=== PATIENT | male | born 1980 | race Caucasian/White ===

== ENCOUNTER 2016-09-08 03:20 | Emergency (ER) | payer BC ==
[2016-09-08] MEDS ORDERED: Ondansetron 4 MG/2 ML SDV IVPUSH ONE (03:29)
[2016-09-08] MEDS ORDERED: Sodium Chloride 0.9% 1,000 ML IV ONE (03:29)
--- NOTE | 2016-09-08 03:42 | EDM.PDOC ---
ED HPI GENERAL MEDICAL PROBLEM - General Chief Complaint: Gastrointestinal Problem Stated Complaint: nausea Time Seen by Provider: 09/08/16 03:27 Source of Information: Reports: Patient, EMS, EMS Notes Reviewed History Limitations: Reports: Other (anxious) - History of Present Illness INITIAL COMMENTS - FREE TEXT/NARRATIVE: 36 years old w m came to the ed by ems due to sudden onset of N/V, worst headache, bilat arm tingling and SOB. Pt stated he was in the past diagnosed with TIA. He is under a lot of stress at work. As the patient arrived here, he was pale but improved as the HPI was taken. No stroke symptoms. Pt was holding his arms up for 5 sec. tongue was midline EOMI. Pt stated he felt nauseated, his sob and arm tingling are subsiding. Onset: Today, Sudden Onset Date: 09/08/16 Onset Time: 03:00 Duration: Minutes: Location: Reports: Head, Upper Extremity, Left, Upper Extremity, Right Quality: Reports: Same as Previous Episode Severity: Moderate Improves with: Reports: None Worsens with: Reports: None - Related Data Allergies Allergy/AdvReac Type Severity Reaction Status Date / Time No Known Allergies Allergy Verified 09/08/16 03:25 Home Meds: Home Meds Ondansetron [Zofran ODT] 8 mg PO Q8HR PRN #16 tab.dis 09/08/16 [Rx] Polyvinyl Alcohol/Povidone/Pf [Refresh Classic Eye Drops] 2 drop EYEBOTH QID [History] ED ROS GENERAL - Review of Systems Review Of Systems: See Below Constitutional: Reports: No Symptoms, Fatigue, Night Sweats HEENT: Reports: No Symptoms Respiratory: Reports: Shortness of Breath Cardiovascular: Reports: No Symptoms Endocrine: Reports: No Symptoms GI/Abdominal: Reports: Nausea : Reports: No Symptoms Musculoskeletal: Reports: Muscle Pain Skin: Reports: No Symptoms Neurological: Reports: Weakness Psychiatric: Reports: Agitation, Anxiety Hematologic/Lymphatic: Reports: No Symptoms Immunologic: Reports: No Symptoms ED EXAM, GI/ABD - Physical Exam Exam: See Below Exam Limited By: Other (anxious) General Appearance: Alert, WD/WN, Anxious, Mild Distress Eyes: Bilateral: Normal Appearance Ears: Normal External Exam Nose: Normal Inspection, Normal Mucosa, No Blood Throat/Mouth: Normal Inspection, Normal Lips Head: Atraumatic, Normocephalic Neck: Normal Inspection, Supple, Non-Tender Respiratory/Chest: Respiratory Distress (by hyperventilating) Cardiovascular: Normal Peripheral Pulses, Regular Rate, Rhythm, No Edema GI/Abdominal: Normal Bowel Sounds, Soft, Non-Tender, No Organomegaly (Male) Exam: Deferred Rectal (Males) Exam: Deferred Back Exam: Normal Inspection, Full Range of Motion Extremities: Normal Inspection, Normal Range of Motion, Non-Tender, No Pedal Edema, Normal Capillary Refill Neurological: Alert, Oriented, CN II-XII Intact, Normal Cognition Psychiatric: Anxious Skin Exam: Warm, Dry, Intact, Pallor Lymphatic: No Adenopathy Course - Vital Signs Text/Narrative:: 36 years old w m came to the ed by ems due to sudden onset of N/V, worst headache, bilat arm tingling and SOB. Pt stated he was in the past diagnosed with TIA. He is under a lot of stress at work. As the patient arrived here, he was pale but improved as the HPI was taken. No stroke symptoms. Pt was holding his arms up for 5 sec. tongue was midline EOMI. Pt stated he felt nauseated, his sob and arm tingling are subsiding. PE: Anxious appearin 36 y.o.w.m, pale, hyperventiling, RR22 Lab; Resp alkalosis CBC nl, BMP showed a potassium of 3.3 Imaging: CT head: NAD MRI is recommended Impression: Hyperventilation due to anxiety. Res. Alcalosis, Hypokalemia Tx: NS,potassium reexam: Improved Plan: D/C with instructions Last Recorded V/S: Last Vital Signs Temp 36.3 C 09/08/16 03:27 Pulse 66 09/08/16 03:27 Resp 22 H 09/08/16 03:27 BP 112/82 09/08/16 03:27 Pulse Ox 100 09/08/16 03:27 - Orders/Labs/Meds Orders: Active Orders 24 hr Category Date Time Status Head wo Cont [CT] Stat Exams 09/08/16 03:29 Taken Labs: Laboratory Tests 09/08/16 09/08/16 09/08/16 Range/Units 03:47 03:47 03:47 WBC 5.5 (4.5-12.0) X10-3/uL RBC 4.26 L (4.30-5.75) x10(6)uL Hgb 13.6 (11.5-15.5) g/dL Hct 39.4 (30.0-51.3) % MCV 92.5 (80-96) fL MCH 32.0 (27.7-33.6) pg MCHC 34.6 (32.2-35.4) g/dL RDW 12.0 (11.5-15.5) % Plt Count 237 (125-369) X10(3)uL MPV 9.2 (7.4-10.4) fL Add Manual Diff Yes Neutrophils % (Manual) 37 L (46-82) % Band Neutrophils % 2 (0-6) % Lymphocytes % (Manual) 52 H (13-37) % Monocytes % (Manual) 8 (4-12) % Eosinophils % (Manual) 1 (0-5) % ABG pH 7.54 H (7.35-7.45) ABG pCO2 27 L (35-45) mmHg ABG pO2 87 (83-108) mmHg ABG HCO3 23 (22-26) mmol/L ABG O2 Saturation 90 L (96-97) % ABG Base Excess 1.5 (-2-2) Duran Test Performed O2 Delivery Device Room air Sodium 139 (135-145) mmol/L Potassium 3.3 L (3.5-5.3) mmol/L Chloride 103 (100-110) mmol/L Carbon Dioxide 23 (23-29) mmol/L BUN 15 (5-20) mg/dL Creatinine 1.2 (0.6-1.3) mg/dL Est Cr Clr Drug Dosing 91.61 mL/min Estimated GFR (MDRD) > 60 (>60) BUN/Creatinine Ratio 12.5 (9-20) Glucose 141 H (80-116) mg/dL Calcium 9.4 (8.6-10.2) mg/dL Meds: Medications Discontinued Medications Generic Name Dose Route Start Last Admin Trade Name Freq PRN Reason Stop Dose Admin Sodium Chloride 1,000 mls @ 999 mls/hr 09/08/16 03:29 09/08/16 04:05 Normal Saline IV 09/08/16 04:29 999 mls/hr .BOLUS ONE Administration Ondansetron HCl 8 mg 09/08/16 03:29 09/08/16 04:06 Zofran IVPUSH 09/08/16 03:30 8 mg ONETIME ONE Administration Potassium Chloride 40 meq 09/08/16 05:18 Klor-Con M20 PO 09/08/16 05:19 ONETIME ONE Departure - Departure Time of Disposition: 05:24 Disposition: Home, Self-Care 01 Condition: good Clinical Impression: Anxiety hyperventilation, Hypokalemia, Respiratory alkalosis - Discharge Information Prescriptions: Ondansetron [Zofran ODT] 8 mg PO Q8HR PRN #16 tab.dis PRN Reason: Nausea Referrals: PCP,None [Primary Care Provider] - Forms: ED Department Discharge Additional Instructions: Please f/u with your PCP, MRI of brain is considered. Please come back to the ed if your symptoms get worse acutely. - My Orders Last 24 Hours: My Active Orders 09/08/16 03:29 Head wo Cont [CT] Stat - Assessment/Plan Last 24 Hours: My Active Orders 09/08/16 03:29 Head wo Cont [CT] Stat
[2016-09-08] MEDS ORDERED: Potassium Chloride 20 MEQ Tab.ER PO ONE (05:18)
[2016-09-08 06:24] VITALS: BP 114/75
== END 2016-09-08 06:00 | disposition home or self-care (01) ==
LOC: FB.ED 03:20
DX: F41.9 Anxiety disorder, unspecified (principal); R06.4 Hyperventilation; E87.6 Hypokalemia; E87.3 Alkalosis
CPT/HCPCS: 36415; 36600; 70450; 80048; 82803; 85025; 96361; 96374; 99284; A9270; J2405; J7040